=== PATIENT | female | born 1990 | race Two or more races ===

== ENCOUNTER 2017-11-28 09:08 | Inpatient (IN) | payer SELFPAY ==
[~2017-11-28] VITALS: Ht 154.9 cm; Wt 66.1 kg
[2017-11-28 10:31] LABS: Basophils # (auto) 0 uL; Eosinophils # (auto) 0 uL; Eosinophils % (auto) 0.3 % (0.0-7.0); Hemoglobin 17.2 g/dL (12.2-16.2); Lymphocytes # (auto) 0.7 uL; Mean Corpuscular Volume 97.5 fL (80.0-100.0); Monocytes # (auto) 0.3 uL; Monocytes % (auto) 6.2 % (0.0-12.0); Neutrophils # (auto) 4.1 uL; White Blood Cell 5.1 10^3/uL (4.4-10.8)
[2017-11-28 10:33] LABS: Basophils % (auto) 0.6 % (0.0-2.0); Hematocrit 54.3 % (36.0-46.0); Lymphocytes % (auto) 13.5 % (10.0-50.0); Mean Corpuscular Hemoglobin 30.8 pg (28.0-32.0); Mean Corpuscular Hgb Conc. 31.6 g/dL (32.0-36.0); Neutrophils % (auto) 79.4 % (37.0-80.0); Nucleated Red Blood Cells % 0.1 %; Platelet Count (auto) 294 10^3/uL (140-450); Red Blood Cells 5.57 10^6/uL (4.0-5.20); Red Cell Distribution Width 12.7 % (11.8-14.3)
[2017-11-28] MEDS ORDERED: SODIUM CHLORIDE 0.9% 1,000 ML IVB ONE (11:08)
[2017-11-28] MEDS ORDERED: ONDANSETRON HCL 4 MG/2 ML VIAL IV ONE (11:15)
[2017-11-28] MEDS ORDERED: SODIUM CHLORIDE 0.9% 1,000 ML IV ONE (11:15)
[2017-11-28 11:42] LABS: INR 0.99 (0.9-1.15); Prothrombin Time 10.6 sec (9.27-12.13)
[2017-11-28] MEDS: PROMETHAZINE HCL 25 MG/ML 1ML IV ONE ×2 (11:55→12:05)
[2017-11-28 12:19] LABS: Albumin 4.4 g/dL (3.4-5.0); BUN/Creatinine Ratio 9.3; Calcium 9.6 mg/dL (8.5-10.1)
[2017-11-28 12:21] LABS: Potassium 6.2 mmol/L (3.5-5.1)
[2017-11-28] MEDS ORDERED: DEXTROSE (50%) 50ML SYRG IV PRN (12:45)
[2017-11-28 12:54] LABS: Magnesium 3.1 mg/dL (1.6-2.6)
[2017-11-28] MEDS ORDERED: InsuLIN R (HUMAN) 100 UNITS in SODIUM CHL 0.9% 99 ML IV SCH (13:00)
[2017-11-28] MEDS: SODIUM CHLORIDE 0.9% 1,000 ML IV SCH ×4 (13:45→17:56)
[2017-11-28] MEDS: ACCU-CHEK COMFORT CURVE STRIP VI SCH ×7 (13:53→22:37)
[2017-11-28] MEDS ORDERED: MORPHINE SULF INJ 2 MG/ML SYRINGE 1ML IV PRN (14:15)
[2017-11-28] MEDS ORDERED: NITROGLYCERIN 0.4 MG SL TAB SL PRN (14:15)
[2017-11-28] MEDS ORDERED: PROMETHAZINE HCL 25 MG/ML 1ML IV PRN (14:15)
[2017-11-28] MEDS ORDERED: SODIUM CHLORIDE 0.9% 1,000 ML IV SCH (16:34)
[2017-11-28] MEDS: InsuLIN R (HUMAN) 100 UNITS in SODIUM CHL 0.9% 99 ML IV SCH (17:33)
[2017-11-28 19:12] LABS: BUN/Creatinine Ratio 10.4; Calcium 9.6 mg/dL (8.5-10.1); Potassium 3.5 mmol/L (3.5-5.1)
[2017-11-29] MEDS: ACCU-CHEK COMFORT CURVE STRIP VI SCH ×12 (00:08→23:50)
[2017-11-29] MEDS: SODIUM CHLORIDE 0.9% 1,000 ML IV SCH ×2 (01:14→07:54)
[2017-11-29 07:30] LABS: Basophils # (auto) 0.1 uL; Basophils % (auto) 1.3 % (0.0-2.0); Eosinophils # (auto) 0.1 uL; Hematocrit 46.3 % (36.0-46.0); Hemoglobin 15.4 g/dL (12.2-16.2); Lymphocytes # (auto) 1.6 uL; Mean Corpuscular Hemoglobin 30.2 pg (28.0-32.0); Mean Corpuscular Hgb Conc. 33.2 g/dL (32.0-36.0); Mean Corpuscular Volume 90.9 fL (80.0-100.0); Monocytes # (auto) 0.3 uL; Monocytes % (auto) 6.1 % (0.0-12.0); Neutrophils # (auto) 2.8 uL; Neutrophils % (auto) 57.6 % (37.0-80.0); Nucleated Red Blood Cells % 0.3 %; Platelet Count (auto) 276 10^3/uL (140-450); Red Blood Cells 5.09 10^6/uL (4.0-5.20); Red Cell Distribution Width 12.7 % (11.8-14.3); White Blood Cell 4.9 10^3/uL (4.4-10.8)
[2017-11-29] MEDS: LEVOTHYROXINE SODIUM 100 MCG TAB PO SCH (07:39)
[2017-11-29] MEDS: D5W/SOD CHL 0.45% 1,000 ML IV SCH ×3 (07:54→12:15)
[2017-11-29 08:06] LABS: Albumin 3.5 g/dL (3.4-5.0); Bilirubin, Total 0.3 mg/dL (0.2-1.0); Calcium 9.2 mg/dL (8.5-10.1); Potassium 3.4 mmol/L (3.5-5.1); Total Protein 7.4 g/dL (6.4-8.2)
[2017-11-29] MEDS ORDERED: INSULIN LANTUS (GLARGINE) 1 /0.01ml (100units/ml) SC ONE (11:30)
[2017-11-29] MEDS ORDERED: DEXTROSE (50%) 50ML SYRG IV PRN (11:30)
[2017-11-29] MEDS ORDERED: POTASSIUM CHL 20 Meq TABLET PO ONE (11:30)
[2017-11-29 11:46] LABS: Urine Bacteria FEW /hpf (None Seen); Urine Blood Negative /uL (Negative); Urine WBC 6 /hpf (0 - 5)
[2017-11-29] MEDS: InsuLIN REG 1unit/0.01ml Soln (100units/ml) SC SCH ×4 (12:05→23:51)
[2017-11-29] MEDS: InsuLIN R (HUMAN) 100 UNITS in SODIUM CHL 0.9% 99 ML IV SCH (17:17)
[2017-11-29 18:23] VITALS: BP 126/91
[2017-11-29] MEDS ORDERED: LEVO100T8 PO (18:46)
[2017-11-29 22:00] VITALS: BP 138/77
[2017-11-30] MEDS: D5W/SOD CHL 0.45% 1,000 ML IV SCH ×2 (00:30→10:39)
[2017-11-30] MEDS: ACCU-CHEK COMFORT CURVE STRIP VI SCH ×4 (03:42→22:11)
[2017-11-30] MEDS: InsuLIN REG 1unit/0.01ml Soln (100units/ml) SC SCH ×3 (03:42→17:33)
[2017-11-30 04:53] VITALS: BP 102/69
[2017-11-30] MEDS: LEVOTHYROXINE SODIUM 100 MCG TAB PO SCH (06:25)
[2017-11-30 08:00] LABS: Albumin 3.3 g/dL (3.4-5.0); BUN/Creatinine Ratio 6.8; Bilirubin, Total 0.5 mg/dL (0.2-1.0); Potassium 3.4 mmol/L (3.5-5.1); Total Protein 6.9 g/dL (6.4-8.2)
[2017-11-30 08:46] VITALS: BP 108/70
[2017-11-30] MEDS ORDERED: POTASSIUM CHL 20 Meq TABLET PO ONE (12:00)
[2017-11-30] MEDS ORDERED: DEXTROSE (50%) 50ML SYRG IV PRN (12:00)
[2017-11-30] MEDS ORDERED: InsuLIN REG 1unit/0.01ml Soln (100units/ml) SC ONE (12:15)
[2017-11-30 12:57] VITALS: BP 111/75
[2017-11-30] MEDS: SOD CHL 0.45% WITH 20MEQ KCL 1,000 ML IV SCH (16:02)
[2017-11-30 17:19] VITALS: BP 129/85
[2017-11-30] MEDS ORDERED: INSULIN LANTUS (GLARGINE) 1 /0.01ml (100units/ml) SC SCH (22:00)
[2017-11-30] MEDS ORDERED: InsuLIN REG 1unit/0.01ml Soln (100units/ml) SC SCH (22:00)
[2017-11-30 22:30] VITALS: BP 123/83
[2017-12-01 05:29] VITALS: BP 112/69
[2017-12-01] MEDS: LEVOTHYROXINE SODIUM 100 MCG TAB PO SCH (06:34)
[2017-12-01] MEDS: InsuLIN REG 1unit/0.01ml Soln (100units/ml) SC SCH ×2 (06:34→11:25)
[2017-12-01] MEDS: ACCU-CHEK COMFORT CURVE STRIP VI SCH ×2 (06:35→11:25)
[2017-12-01] MEDS: SOD CHL 0.45% WITH 20MEQ KCL 1,000 ML IV SCH (06:35)
[2017-12-01 07:17] LABS: Albumin 3.2 g/dL (3.4-5.0); BUN/Creatinine Ratio 9.9; Potassium 4.2 mmol/L (3.5-5.1)
[2017-12-01 07:19] LABS: Bilirubin, Total 0.4 mg/dL (0.2-1.0); Total Protein 6.9 g/dL (6.4-8.2)
[2017-12-01 08:42] VITALS: BP 109/68
[2017-12-01 11:40] VITALS: BP 159/67
== END 2017-12-01 13:06 | disposition home or self-care (01) | DRG 638 ==
LOC: ER 09:08 → TELE 09:09 → TELE-WESTW 11-29 18:04 → WEST WING 11-30 12:12
PROVIDERS: ADMIT Internal Medicine; ATTEND Internal Medicine
DX: E11.00 Type 2 diabetes mellitus with hyperosmolarity without nonketotic hyperglycemic-hyperosmolar coma (NKHHC) (principal); E72.51 Non-ketotic hyperglycinemia; E03.9 Hypothyroidism, unspecified; E86.0 Dehydration; E87.5 Hyperkalemia; E87.6 Hypokalemia; F41.9 Anxiety disorder, unspecified; K76.0 Fatty (change of) liver, not elsewhere classified; Z79.4 Long term (current) use of insulin; Z82.49 Family history of ischemic heart disease and other diseases of the circulatory system
CPT/HCPCS: 36415; 36600; 76705; 76801; 76817; 80048; 80053; 81001; 81025; 82010; 82150; 82805; 82962; 83036; 83690; 83735; 84443; 84702; 85025; 85610; 85730; 94761; 96361; 96365; 96375; 99291; J1815

== ENCOUNTER 2023-12-22 10:06 | Inpatient (IN) | payer MEDICAID, OTHER ==
[~2023-12-22] VITALS: Ht 154.9 cm; Wt 48.4 kg
[~2023-12-22 10:06] MED LIST: LEVO100T8 PO
[2023-12-22 10:40] LABS: Urine Bacteria None Seen /hpf (None Seen)
[2023-12-22 11:05] LABS: Urine Blood Negative /uL (Negative); Urine Clarity Clear (Clear); Urine Color Colorless (Yellow); Urine Protein, UAD TRACE (Negative); Urine Urobilinogen Normal (Negative); Urine WBC 26 /hpf (0 - 5); Urine pH 5.5 (5.0-9.0)
[2023-12-22 11:21] LABS: Alanine Aminotransferase 14 U/L (7-40); Albumin 5.1 g/dL (3.2-4.8); Alkaline Phosphatase 227 U/L (46-116); Anion Gap 18 (5-15); Aspartate Aminotransferase 9 U/L (13-40); Bilirubin, Total 0.3 mg/dL (0.2-1.0); Blood Urea Nitrogen 32 mg/dL (9-23); Calcium 11.7 mg/dL (8.7-10.4); Carbon Dioxide 13 mmol/L (20-30); Chloride 103 mmol/L (98-107); Sodium 134 mmol/L (136-145); Total Protein 9.2 g/dL (5.7-8.2)
[2023-12-22 11:23] LABS: Glucose 481 mg/dL (74-106)
[2023-12-22 11:25] LABS: Base Excess -14.8 mmol/L (-2.0-3.0)
[2023-12-22] MEDS: SODIUM CHLORIDE 0.9% 1,000 ML IV ONE (11:32)
[2023-12-22 11:35] LABS: Hematocrit 40.6 % (36.0-46.0); Hemoglobin 13.8 g/dL (12.2-16.2); Mean Corpuscular Hemoglobin 30.9 pg (28.0-32.0); Mean Corpuscular Hgb Conc. 34.1 g/dL (32.0-36.0); Mean Corpuscular Volume 90.8 fL (80.0-100.0); Platelet Count (auto) 711 10^3/uL (140-450); Red Blood Cells 4.47 10^6/uL (4.0-5.20); Red Cell Distribution Width 13.7 % (11.8-14.3); White Blood Cell 18.6 10^3/uL (4.4-10.8)
[2023-12-22 11:37] LABS: Band Neutrophils % (manual) 0; Basophils % (manual) 0 (0.0-2.0); Blast Cells 0; Eosinophils % (manual) 0 (0-7); Metamyelocytes % 0; Myelocytes % 0; Promyelocytes % 0; Reactive Lymphocytes 0
[2023-12-22] MEDS: InsuLIN REG 1unit/0.01ml Soln (100units/ml) IV ONE (11:55)
[2023-12-22 12:04] VITALS: PULSE 96; RESP 14; O2SAT 100
[2023-12-22] MEDS ORDERED: DEXTROSE (50%) 50ML SYRG IV PRN (13:00)
[2023-12-22] MEDS: INSULIN DRIP 100 UNIT/100ML 100 ML IV SCH ×2 (13:26→15:10)
[2023-12-22] MEDS: INSULIN LANTUS (GLARGINE) 1 /0.01ml (100units/ml) SC ONE (13:27)
[2023-12-22] MEDS: SODIUM CHLORIDE 0.9% 1,000 ML IV SCH ×3 (13:29→19:00)
[2023-12-22] MEDS: MORPHINE SULFATE 4 MG/ML SYR/VIAL IV ONE ×2 (13:31→18:31)
[2023-12-22] MEDS: ACCU-CHEK COMFORT CURVE STRIP VI SCH ×2 (13:32→20:21)
[2023-12-22] MEDS: cefTRIAXone 1GM/50ML D5W 50 ML IV ONE (13:32)
[2023-12-22] MEDS: ONDANSETRON HCL 4 MG/2 ML VIAL IV ONE ×2 (13:32→18:43)
[2023-12-22 14:28] LABS: Lymphocytes % (manual) 4 (10.0-50.0); Monocytes % (manual) 3 (0-12); Platelet Estimate Increased
[2023-12-22 14:34] LABS: Chloride 110 mmol/L (98-107); Sodium 139 mmol/L (136-145)
[2023-12-22 14:35] LABS: Anion Gap 15 (5-15); Calcium 10.2 mg/dL (8.7-10.4); Carbon Dioxide 14 mmol/L (20-30)
[2023-12-22 14:40] LABS: BUN/Creatinine Ratio 19.9 (10.0-20.0); Blood Urea Nitrogen 28 mg/dL (9-23); Glucose 397 mg/dL (74-106); Magnesium 2.2 mg/dL (1.6-2.6)
[2023-12-22 14:42] LABS: Phosphorus 3.3 mg/dL (2.4-5.1)
[2023-12-22] MEDS: MORPHINE SULFATE INJ 2 MG/ml SYRG IV ONE (18:44)
[2023-12-22 18:47] LABS: Potassium 3.7 mmol/L (3.5-5.1)
[2023-12-22 18:48] LABS: Anion Gap 12 (5-15); Carbon Dioxide 17 mmol/L (20-30)
[2023-12-22 18:49] LABS: Calcium 9.3 mg/dL (8.7-10.4)
[2023-12-22 18:53] LABS: BUN/Creatinine Ratio 24.5 (10.0-20.0); Blood Urea Nitrogen 27 mg/dL (9-23); Glucose 254 mg/dL (74-106)
[2023-12-22 19:02] LABS: Chloride 122 mmol/L (98-107); Sodium 151 mmol/L (136-145)
[2023-12-22 19:37] VITALS: PULSE 96; RESP 12; O2SAT 93
[2023-12-22] MEDS: InsuLIN REG 1unit/0.01ml Soln (100units/ml) SC SCH (20:26)
[2023-12-22] MEDS ORDERED: DOCUSATE SOD 100 MG CAP PO PRN (21:15)
[2023-12-22] MEDS: D5W 5% 1,000 ML IV SCH (22:00)
[2023-12-22] MEDS ORDERED: NITROGLYCERIN 0.4 MG SL TAB SL PRN (22:45)
[2023-12-22] MEDS ORDERED: MORPHINE SULFATE INJ 2 MG/ml SYRG IV PRN (22:45)
[2023-12-22 22:49] LABS: Chloride 124 mmol/L (98-107); Potassium 3.7 mmol/L (3.5-5.1); Sodium 152 mmol/L (136-145)
[2023-12-22 22:50] LABS: Anion Gap 14 (5-15); Calcium 9.4 mg/dL (8.7-10.4); Carbon Dioxide 14 mmol/L (20-30)
[2023-12-22 22:55] LABS: Glucose 292 mg/dL (74-106)
[2023-12-22 23:16] LABS: BUN/Creatinine Ratio 21.8 (10.0-20.0); Blood Urea Nitrogen 22 mg/dL (9-23)
[2023-12-23] VITALS (8 sets, daily range): BP systolic 103–133; BP diastolic 65–91; PULSE 54–122; RESP 16–18; TEMP 97.8–100.1; O2SAT 97–99
[2023-12-23] MEDS: HYDROcodone-ACET 5/325MG TAB PO PRN (00:31)
[2023-12-23 01:43] LABS: Anion Gap 13 (5-15); Carbon Dioxide 17 mmol/L (20-30); Chloride 122 mmol/L (98-107); Potassium 3.4 mmol/L (3.5-5.1); Sodium 152 mmol/L (136-145)
[2023-12-23 01:49] LABS: Blood Urea Nitrogen 22 mg/dL (9-23); Glucose 390 mg/dL (74-106)
[2023-12-23] MEDS: guaiFENesin-DM 100/10mg/5ml SYR PO PRN (02:22)
[2023-12-23] MEDS: POTASSIUM CHL 20 Meq TABLET PO ONE (02:22)
[2023-12-23] MEDS: LEVOTHYROXINE SODIUM 100 MCG TAB PO SCH (05:32)
[2023-12-23] MEDS: cefTRIAXone 1GM/50ML D5W 50 ML IV SCH (08:37)
[2023-12-23] MEDS: FAMOTIDINE (10MG/ML) 2ML VL IV SCH (08:38)
[2023-12-23] MEDS: ENOXAPARIN SOD 40 MG/0.4 ML SYRINGE SC SCH (08:38)
[2023-12-23] MEDS: INSULIN LANTUS (GLARGINE) 1 /0.01ml (100units/ml) SC SCH (08:51)
[2023-12-23 10:03] LABS: Hemoglobin 12.3 g/dL (12.2-16.2)
[2023-12-23 10:05] LABS: Hematocrit 36.1 % (36.0-46.0); Mean Corpuscular Hemoglobin 30.7 pg (28.0-32.0); Mean Corpuscular Volume 90.4 fL (80.0-100.0); Platelet Count (auto) 580 10^3/uL (140-450); Red Cell Distribution Width 14.6 % (11.8-14.3); White Blood Cell 11.1 10^3/uL (4.4-10.8)
[2023-12-23 10:09] LABS: Alanine Aminotransferase 16 U/L (7-40); Albumin 4.2 g/dL (3.2-4.8); Alkaline Phosphatase 169 U/L (46-116); Anion Gap 8 (5-15); Aspartate Aminotransferase < 8 U/L (13-40); BUN/Creatinine Ratio 15.7 (10.0-20.0); Bilirubin, Total 0.2 mg/dL (0.2-1.0); Blood Urea Nitrogen 16 mg/dL (9-23); Calcium 9.9 mg/dL (8.7-10.4); Carbon Dioxide 20 mmol/L (20-30); Chloride 119 mmol/L (98-107); Potassium 3.7 mmol/L (3.5-5.1); Total Protein 7.6 g/dL (5.7-8.2)
[2023-12-23 10:30] LABS: Sodium 147 mmol/L (136-145)
[2023-12-23 10:33] LABS: Glucose 465 mg/dL (74-106)
[2023-12-23 10:38] LABS: Basophils % (manual) 0 (0.0-2.0); Blast Cells 0; Eosinophils % (manual) 0 (0-7); Metamyelocytes % 0; Myelocytes % 0; Promyelocytes % 0; Reactive Lymphocytes 0
[2023-12-23] MEDS: SODIUM CHLORIDE 0.9% 1,000 ML IV SCH (10:45)
[2023-12-23] MEDS: INSULIN LANTUS (GLARGINE) 1 /0.01ml (100units/ml) SC ONE (10:45)
[2023-12-23 11:58] LABS: Band Neutrophils % (manual) 9; Lymphocytes % (manual) 4 (10.0-50.0); Monocytes % (manual) 3 (0-12)
[2023-12-23 11:59] LABS: Platelet Estimate Increased
[2023-12-23] MEDS: ACETAMINOPHEN 325 MG TAB PO PRN (12:38)
[2023-12-23] MEDS: DexAMETHasone SOD PHOS 10MG/1ML VIAL INJ IV ONE (18:53)
[2023-12-24] VITALS (9 sets, daily range): BP systolic 102–124; BP diastolic 58–84; PULSE 89–123; RESP 17–22; TEMP 98.2–99.5; O2SAT 93–100
[2023-12-24] MEDS: INSULIN LANTUS (GLARGINE) 1 /0.01ml (100units/ml) SC SCH (09:11)
[2023-12-24] MEDS: methylPREDNISolone SOD SUCC 125 MG/2 ML VL IV ONE (17:01)
[2023-12-24] MEDS: IOHEXOL 350 MG/ML 100ML IJ ONE (18:03)
[2023-12-24] MEDS: methylPREDNISolone SOD SUCC 125 MG/2 ML VL IV SCH (21:07)
[2023-12-25 01:00] VITALS: BP 106/72; PULSE 62; RESP 18; TEMP 98; O2SAT 100
[2023-12-25 05:00] VITALS: BP 121/63; PULSE 66; RESP 18; TEMP 97.5; O2SAT 98
[2023-12-25] MEDS: LEVOTHYROXINE SODIUM 100 MCG TAB PO SCH (06:29)
[2023-12-25 08:00] VITALS: PULSE 86; RESP 18
[2023-12-25 08:37] VITALS: BP 124/84; PULSE 56; RESP 15; TEMP 98; O2SAT 99
[2023-12-25] MEDS: FLUCONAZOLE 200MG/100ML 100 ML IV SCH (13:40)
[2023-12-25] MEDS: ONDANSETRON HCL 4 MG/2 ML VIAL IV PRN (13:51)
[2023-12-25] MEDS ORDERED: LORazepam 2MG/ML-1ML VIAL IV PRN (14:00)
[2023-12-25] MEDS: PIPERACILLIN-TAZOB 3.375GM 100 ML IV SCH (14:11)
[2023-12-25] MEDS: LORazepam 2MG/ML-1ML VIAL IV ONE (14:54)
[2023-12-25] MEDS: GADOTERATE MEG 7.5 MMOL/15ml INJ (0.5MMOL/ml) IV ONE (16:23)
[2023-12-25 20:00] VITALS: PULSE 59
[2023-12-25 21:00] VITALS: BP 102/70; PULSE 50; RESP 18; TEMP 97; O2SAT 97
[2023-12-25] MEDS: levETIRAcetam 500 mg/100ml 100 ML IV SCH (21:15)
[2023-12-26 01:03] LABS: Erythrocyte Sedimentation Rate 107 mm/hr (0-20)
[2023-12-26 05:02] VITALS: BP 110/69; PULSE 64; RESP 16; TEMP 98.3; O2SAT 100
[2023-12-26 08:00] VITALS: PULSE 84; RESP 14
[2023-12-26 08:27] VITALS: BP 114/76; PULSE 73; RESP 14; TEMP 98.5; O2SAT 100
[2023-12-26 12:31] VITALS: BP 94/71; PULSE 71; RESP 14; TEMP 99; O2SAT 96
[2023-12-26 17:05] VITALS: BP 109/61; PULSE 64; RESP 14; TEMP 98.7; O2SAT 99
== END 2023-12-26 19:12 | disposition short-term general hospital (02) | DRG 420 ==
LOC: ER 10:06 → TELE 22:38 → TELE-WESTW 22:38
PROVIDERS: ADMIT Nurse Practitioner Family; ATTEND Nurse Practitioner Acute Care
DX: E11.10 Type 2 diabetes mellitus with ketoacidosis without coma (principal); N17.0 Acute kidney failure with tubular necrosis; G08 Intracranial and intraspinal phlebitis and thrombophlebitis; H49.02 Third [oculomotor] nerve palsy, left eye; E87.8 Other disorders of electrolyte and fluid balance, not elsewhere classified; D75.839 Thrombocytosis, unspecified; N39.0 Urinary tract infection, site not specified; G40.909 Epilepsy, unspecified, not intractable, without status epilepticus; J32.9 Chronic sinusitis, unspecified; E03.9 Hypothyroidism, unspecified; R29.810 Facial weakness; R13.10 Dysphagia, unspecified; H55.09 Other forms of nystagmus; B96.89 Other specified bacterial agents as the cause of diseases classified elsewhere
CPT/HCPCS: 36415; 36600; 70450; 70490; 70496; 70542; 70551; 71045; 80048; 80053; 81001; 82010; 82805; 82962; 83735; 83930; 84100; 84439; 84443; 84484; 84702; 85007; 85027; 85652; 86038; 86141; 87086; 87088; 92610; 93005; 95819; 99291; G0378; J1100; J1450; J1815; J2405; J2543; J3490